=== PATIENT | female | born 1960 | race Caucasian/White ===

== ENCOUNTER → 2022-07-18 | Outpatient (CLI) | payer MEDICAID, SELFPAY ==
--- NOTE | 2022-07-18 | IMM_PTH ---
PATIENT: CONNOR MEYERS LOC: [facility] U#:[id number] AGE/SX: 61/F ROOM: RE07/18/[address]: Dr. Krystal Winkler MD : 1960 BED: DIS: 07/18/2022 SPEC #: [id number] RECD: 07/20/22 14:21 STATUS: IDA REQ #: [id number] ERNESTO: 07/18/22 00:[address]: Krystal Winkler DEPT: IMMUNOHISTOCHEMISTRY RECD BY: Rosa Thakur ENTERED: 07/20/22 14:22 SP TYPE: IMMUNO OTHR DR: Dr. Brian Pozo MD Tissues: Right breast, NOS Procedures: CALPONIN-1 (add) CK5-6 (add) CK8 (add) E-CAD (add) HER2 LESTER (add) KI-67 (add) P53 (add) IA (add) P40 (add) ER (initial) PHYSICIAN & [address] [address] SPECIMEN INFORMATION: Tissue Source: Right breast Clinical Info: Right breast calcifications upper outer middle depth Specimen Number: [id number] #2 CPT code: 94250, 14955 x6, 26312 x3 METHODOLOGY: Deparaffinized sections of prefer/formalin-fixed tissue or PAP/DQ stained slides are incubated with monoclonal/polyclonal antibodies/oligonucleotide probes. Localization is made via biotin free immunoperoxidase method. Appropriate controls are performed and reacted as expected. Results on target cell population are indicated in the following table: RESULTS: ANTIBODY / CLONE RESULT Block 2 P53 (DO-7) positive, missense mutation pattern Ki-67 (30-9) positive, ~60% CK8 (82rnbzI85) positive CK5-6 (D5 & 1684) positive (myoepithelial layer) Calponin-1 (PD091T) positive (myoepithelial layer) P40 (BC28) positive (myoepithelial layer) E-Cad (ECH-6) positive MORPHOMETRIC ANALYSIS ER (clone 6F11) positive, up to 62%,weak intensity IA (clone 16/1E2) negative, 0% Her-2Neu (clone CB11) 1+ (low positive) The prognostic test for HER2 is performed on formalin-fixed paraffin embedded tissue. A 3+ (positive) staining pattern is defined as intense, homogeneous, complete, circumferential membranous staining in >10% of contiguous tumor cells. A similar weak (2+) staining pattern is interpreted as equivocal. EDWIN follow-up testing is recommended for all equivocal cases. Positivity/negativity for ER/IA is reported if > or < 1% of the tumor cells are immuno- reactive, respectively. The ASCO/CAP criteria is used for scoring. Reference: Journal of Clinical Oncology, 2013; 31:9185-1419 & 2010; 16:2329-7742. Duration of fixation: 8 Hrs; Sample Adequate: Yes. These assays have not been validated on decalcified tissues. Results should be interpreted with caution given the likelihood of false negativity on decalcified specimens. These tests were developed and their performance characteristics determined by [facility]. They may not have been cleared or approved by the U.[place]. Food and Drug Administration. The FDA has determined that such clearance or approval is not necessary. The above immunohistochemical/dualISH markers are ordered by Dr. Evans and reviewed by the Pathologist. INTERPRETATION: Right breast calcifications, upper outer middle depth, stereotactic core biopsy: Ductal carcinoma in situ. SJ:wil 07/21/2022
--- NOTE | 2022-07-18 | BRBX_PTH ---
PATIENT: CONNOR MEYERS LOC: [facility] U#:[id number] AGE/SX: 61/F ROOM: RE07/18/[address]: Dr. Krystal Winkler MD : 1960 BED: DIS: 07/18/2022 SPEC #: [id number] RECD: 07/18/22 13:04 STATUS: IDA RERichie #: [id number] ERNESTO: 07/18/22 00:[address]: Krystal Winkler DEPT: SURGICAL PATHOLOGY RECD BY: Maldonado Saldivar ENTERED: 07/18/22 13:04 SP TYPE: BREAST BX OTHR DR: Dr. Brian Pozo MD Tissues: Right breast, NOS Procedures: Surgery Specimen Level IV HEADER OPERATION: Right breast stereotactic biopsy PRE-OP DIAGNOSIS: Right breast calcifications upper outer middle depth TISSUE SUBMITTED: Right breast core tissue ISCHEMIC TIME: 1 minute FIXATION TIME: 8 hours MICROSCOPIC DIAGNOSIS Right breast, upper outer region, needle core biopsy: Ductal carcinoma in situ with the following characteristics: Nuclear Grade ? 3/3 Maximum length ? 4 millimeters Comedo necrosis ? present Microcalcifications ? present Type ? cribriform and comedo. See comment. AM:wil 07/19/2022 COMMENT Immunohistochemistry ([id number]) supports the above diagnosis. Case has been reviewed in consultation with Dr. Shelton who concurs with the above diagnosis. IDC:TED MICROSCOPIC DESCRIPTION Slides are reviewed. GROSS DESCRIPTION Received in fixative is one container labeled with the patient's name and designated right breast. The specimen consists of multiple elongated fragments of felipe-yellow fibroadipose tissue that in aggregate measure 5.0 x 3.0 x 0.3 cm. The entire specimen is submitted in one cassette. / TED:wil 07/18/2022 TC:0 CPT: 78209 ADDENDUM ADDENDUM ADDENDUM ADDENDUM ADDENDUM ADDENDUM ADDENDUM ADDENDUM ADDENDUM ADDENDUM ADDENDUM ADDENDUM ADDENDUM 11/05/2024 13:05 ADDENDUM 11/05/2024 13:05 ADDENDUM 11/05/2024 13:05 ADDENDUM 11/05/2024 13:05 ADDENDUM 11/05/2024 13:05 This addendum is added to incorporate an outside pathology consultation report. The case was examined at [facility] by Dr. Hobbs (#[id number]) and the following diagnosis was rendered. A. Right breast, upper outer region, needle core biopsy: - Ductal carcinoma in situ (DCIS), high nuclear grade, solid and cribriform type, with comedonecrosis and associated microcalcification, measuring 0.4cm in greatest dimension. - In situ tumor: ER positive (60%, moderate intensity) and IL negative (0%) by manual quantification using slides provided by outside institution. Please see complete above mentioned consultation report in EMR
--- NOTE | 2022-07-18 11:37 | OP.PCM_ITS ---
Report of Operation Date of Procedure: 07/18/22 Pre-Operative Diagnosis: abnormal calcifications on right breast mammograms Post-Operative Diagnosis: same Surgery/Procedure Performed:: right breast stereotactic biopsy Surgeon: Krystal Winkler Type of Anesthesia: Local Specimen's removed: right breast tissue Estimated Blood Loss (mL): minimal Description of Procedure: After informed consent was given, the patient was brought into the Breast Biopsy suite. Appropriate time out protocol was followed. The patient was placed in the prone position on the stereotactic biopsy table. The patient?s right breast was then placed in the opening at the head of the biopsy table. A perishable fruit inspector compression mammogram was then obtained in the lateral view. The suspicious radiological lesion was thus identified. Stereo pictures of the lesion were then taken for XYZ coordinates. The Mammotome biopsy stylus was then positioned where it would be entering into the patient?s breast. The skin at this site was then cleansed with a surgical skin preparation. The skin and subcutaneous tissues at this site were then infiltrated with 1% xylocaine. A small skin incision was made with an 11 blade scalpel. The biopsy stylus was then positioned into the patient?s breast at the proper coordinates of depth. Using the Mammotome vacuum-assist device, several core samples of breast tissue were obtained. A specimen mammogram was the obtained. It revealed that the abnormal calcifications were within the specimen. I reviewed this personally and concluded that the tissue sampling was adequate. A hemostatic marker clip was then placed into the biopsy cavity and a perishable fruit inspector film revealed that it was properly deployed. The patient was then placed in the supine position and pressure was applied to the breast until no active bleeding was noted. A nylon suture was applied to reapproximate the skin. A unilateral mammogram in the CC and MLO view were then taken which revealed that the marker clip was in the same area as the previous suspicious lesion. The patient tolerated the procedure well and was discharged from the Breast Biopsy suite in good condition. Complications none noted
== END | disposition home or self-care (01) ==
LOC: BIRAD 10:30
PROVIDERS: PCP Family Medicine; Visit Provider Surgery
DX: D05.11 Intraductal carcinoma in situ of right breast (principal)
CPT/HCPCS: 19081; 88305; 88341; 88342; J7050; A4648